=== PATIENT | female | born 1965 | race Two or more races ===

== ENCOUNTER 2018-02-17 13:28 | Emergency (ER) | payer BC ==
[~2018-02-17] VITALS: Ht 182.9 cm; Wt 85.8 kg
--- NOTE | 2018-02-17 13:50 | NUR ---
BIB EMS, PT C/O HAD NEAR SYNCOPAL EPISODE WHILE DRIVING, DIARRHEA X 3DAYS. AAOX3, VSS, SKIN WARM DRY, NAD NOTED @ THIS TIME. 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
[2018-02-17] MEDS ORDERED: IV NS 0.9% 1,000 ML BAG IV ONE (14:00)
[2018-02-17 14:13] LABS: BASOPHILS % (AUTO) 0.4 % (0.0-2.0); EOSINOPHILS % (AUTO) 0.6 % (0.0-6.0); HEMATOCRIT 39 % (33-45); HEMOGLOBIN 12.9 g/dL (11.5-14.8); LYMPHOCYTES # (AUTO) 1.2 /CMM (0.8-4.8); LYMPHOCYTES % (AUTO) 23.6 % (20.0-44.0); MEAN CORPUSCULAR HEMOGLOBIN 30 PG (26.0-33.0); MEAN CORPUSCULAR HGB CONC 33 g/dl (31.0-36.0); MEAN CORPUSCULAR VOLUME 90 fL (82-100); MONOCYTES # (AUTO) 0.5 /CMM (0.1-1.30); MONOCYTES % (AUTO) 9.4 % (2.0-12.0); NEUTROPHILS # (AUTO) 3.3 /CMM (1.8-8.9); PLATELET COUNT (AUTO) 238 /CMM (150-450); RDW COEFFICIENT OF VARIATION 13.7 (11.5-15.0); RED BLOOD CELL COUNT(AUTO) 4.34 MIL/uL (4.0-5.2)
[2018-02-17 14:22] LABS: CALCIUM, SERUM 8.6 mg/dL (8.5-10.1); CREATININE 0.8 mg/dL (0.6-1.3); POTASSIUM 4.6 mmol/L (3.5-5.1)
--- NOTE | 2018-02-17 14:22 | NUR ---
PT AMB TO BR, URINE COLLECTED & SENT TO LAB.
[2018-02-17 14:26] LABS: APPEARANCE,URINE Clear (CLEAR); BILIRUBIN,URINE Negative (NEGATIVE); BLOOD, URINE Negative Ery/uL (NEGATIVE); COLOR,URINE Yellow (YELLOW); KETONES,URINE Negative (NEGATIVE); LEUKOCYTE ESTERASE ,URINE Negative (NEGATIVE); NITRITE, URINE Negative (NEGATIVE); PH,URINE 5.5 (5.0-8.0); PROTEIN,URINE Negative (NEGATIVE); UGLUCOSE 250 MG/DL mg/dL (NEGATIVE); UROBILINOGEN,URINE 0.2 EU/dL (0.2)
[2018-02-17 14:28] LABS: ALBUMIN 3.4 g/dL (3.4-5.0); BILIRUBIN,DIRECT 0.1 mg/dL (0.0-0.2); BILIRUBIN,TOTAL 0.3 mg/dL (0.2-1.0); TOTAL PROTEIN, SERUM 7.5 g/dL (6.4-8.2)
[2018-02-17 14:36] LABS: INR 0.96 (0.87-1.13)
--- NOTE | 2018-02-17 15:04 | NUR ---
PT STABLE, USING CELL PHONE, NAD NOTED @ THIS TIME.
--- NOTE | 2018-02-17 15:11 | NUR ---
STARTED 2ND 1L OF NS, INFUSING WELL, NO S/S OF SWELLING/REDNESS/INFILTRATION NOTED @ THIS TIME. PT RESTING COMFORTABLY, NAD @ THIS TIME.
[2018-02-17 16:42] VITALS: BP 122/62
--- NOTE | 2018-02-17 16:44 | NUR ---
PT DC'D SALINE LOCK ON LAC, APPLIED DRESSING & ACTIVE BLEEDING NOTED.
--- NOTE | 2018-02-17 16:45 | NUR ---
PT STABLE DENIES DIZZINESS, SOB, CP, N/V, ABD PAIN, NAD NOTED & AMB WITH STEADY GAIT UPON LEAVING ED.
== END 2018-02-17 16:43 | disposition home or self-care (01) ==
LOC: ER 13:30
DX: R55 Syncope and collapse (principal); R19.7 Diarrhea, unspecified; I10 Essential (primary) hypertension; E10.9 Type 1 diabetes mellitus without complications; F32.9 Major depressive disorder, single episode, unspecified; J45.909 Unspecified asthma, uncomplicated; E03.9 Hypothyroidism, unspecified; Z88.2 Allergy status to sulfonamides; Z88.1 Allergy status to other antibiotic agents; Z86.79 Personal history of other diseases of the circulatory system
CPT/HCPCS: 36415; 80048-TC; 80076-TC; 81000-TC; 83690-TC; 84703-TC; 85025-TC; 85730-TC; A4606; J7030; Z7610